=== PATIENT | male | born 1965 | race Two or more races ===

== ENCOUNTER 2020-02-23 12:10 | Emergency (ER) | payer OTHER ==
[~2020-02-23] VITALS: Ht 180.3 cm; Wt 108.9 kg
== END 2020-03-02 12:30 | disposition designated cancer center or children's hospital (05) ==
LOC: ER 12:10 → CPU-OBS 13:05 → ER 13:05
DX: I21.29 ST elevation (STEMI) myocardial infarction involving other sites (principal); E11.9 Type 2 diabetes mellitus without complications; I16.1 Hypertensive emergency; I10 Essential (primary) hypertension; Z03.818 Encounter for observation for suspected exposure to other biological agents ruled out
CPT/HCPCS: G0378; G0379; 93005; 82805; 36600

== ENCOUNTER 2024-10-01 08:48 | Outpatient (CLI) | payer OTHER ==
[2024-10-01 09:35] LABS: URINE APPEARANCE Clear; URINE BILIRRUBIN Negative (NEGATIVE); URINE BLOOD Moderate; URINE COLOR Yellow; URINE KETONE 15 (NEGATIVE); URINE LEUKOCYTE Negative; URINE NITRATE Negative; URINE PROTEIN Negative (NEGATIVE); URINE UROBILINOGEN 0.2 E.U./dl
[2024-10-01 09:38] LABS: BASO % 0.5 % (0.1-1.2); EOS # 0.15 (0.04-0.54); EOS % 2.5 % (0.7-7.0); LYMPH # 1.47 (1.18-3.74); LYMPH % 24.4 % (19.3-53.1); MEAN PLATELET VOLUME 9.90 fl (9.4-12.4); MONO # 0.61 (0.24-0.82); MONO % 10.1 % (4.7-12.5); NEUT # 3.76 (1.56-6.13); NEUT % 62.3 % (34.0-71.1); RED CELL DISTRIBUTION WIDTH 13.0 % (11.6-14.4)
[2024-10-01 09:40] LABS: URINE BACTERIA 9.5 uL (0.0-1933); URINE EPITHELIAL CELLS 5.8 uL (0.0-38.8); URINE RBC 140.3 uL (0.0-20.8); URINE WBC 10.7 uL (0.0-23.2)
[2024-10-01 10:05] LABS: URINE CAST 0.00 uL (0.0-1.40); URINE GLUCOSE >=1000 MG/DL (NEGATIVE)
[2024-10-01 10:38] LABS: ALT/SGPT 35.0 U/L (12-78); AST/SGOT 22.0 U/L (15-37); BILIRUBIN TOTAL 0.91 mg/dL (0.3-1.2); BUN CREA RATIO 17.0 (7.0-25.0); CHOL HDL RATIO 1.6 (0-5.0); CREATININE SERUM 0.82 mg/dL (0.70-1.30); GFR 96.84; GLOBULINA 2.5 G/DL (2.4-3.5); GLUCOSE FASTING 118.0 mg/dL (65-100); HDL 56.0 mg/dl (40-60); LDL 26.0 mg/dl (0-130); OSMOLALITY SERUM 287.0 MOSM/KG (275-295); TSH 1.77 uIU/mL (0.358-3.74); VLDL 9.0 (0-39)
== END 2024-10-01 08:51 | disposition home or self-care (01) ==
LOC: LAB 08:48
DX: E11.65 Type 2 diabetes mellitus with hyperglycemia (principal); E03.9 Hypothyroidism, unspecified; E55.9 Vitamin D deficiency, unspecified